=== PATIENT | female | born 1955 | race Caucasian/White ===

== ENCOUNTER 2016-09-27 17:37 | Emergency (ER) | payer MEDICAID ==
--- NOTE | ~2016-09-27 | CR219 ---
[facility] A Service of [facility] & [facility] RADIOLOGY TEXT RESULTS PATIENT: RISA LARA LOCATION: CFTX : 57 UNIT #: [id number] AGE: [address]: Polina Bray SEX: F ORDER DR: [id number] [facility] [address] [place], [place] [address] [id number] E MR#: [id number] Acc #: [id number] NAME: RISA LARA. : 1955 SEX: F STUDY DATE/TIME: 09/27/2016 19:46 UNIT: [facility] ROOM: STUDY DESCRIPTION: CR Sacrum and Coccyx Min 2 Vie Attending Physician: Polina Bray Pa-C Ordering Physician: Ed Mehdi Mancilla M.D. Primary Care Physician: Taylor Sinclair M.D. MEDICAL IMAGING REPORT This report is preliminary unless electronic signature is present EXAM Sacrococcygeal series dated 09/27/16. COMPARISON CT abdomen and pelvis dated 07/15/06. No dedicated prior sacrococcygeal series are available. HISTORY Sacrococcygeal pain post fall on 09/27/16. FINDINGS Six images of three views of the sacrococcygeal spine were obtained. The inlet and outlet pelvic views in the frontal aspect and the lateral sacrococcygeal views were obtained. No obvious acute displaced fracture is identified in the sacrococcygeal spine. There appear to be pars defects at L5 but mild retrolisthesis of S1 with respect to L5. The soft tissues do not demonstrate any significant abnormality. Dictated by... Edgar Lao M.D. THIS IS AN ELECTRONICALLY VERIFIED REPORT Edgar Lao M.D. at 09/28/2016 9:02 PM CPR/bd TD: 09/28/2016 10:42 JOB #: [id number] MEDICAL IMAGING REPORT Page 1 of 1 COPY
--- NOTE | ~2016-09-27 | CR151 ---
[facility] A Service of [facility] & [facility] RADIOLOGY TEXT RESULTS PATIENT: RISA LARA LOCATION: CFTX : 57 UNIT #: [id number] AGE: [address]: Polina Bray SEX: F ORDER DR: [id number] [facility] [address] [place], [place] [address] [id number] E MR#: [id number] Acc #: [id number] NAME: RISA LARA. : 1955 SEX: F STUDY DATE/TIME: 09/27/2016 19:45 UNIT: [facility] ROOM: STUDY DESCRIPTION: CR Hip Min 2 Views Rt Attending Physician: Polina Bray Pa-C Ordering Physician: Ed Doctor [id number] [facility] Primary Care Physician: Taylor Sinclair M.D. MEDICAL IMAGING REPORT This report is preliminary unless electronic signature is present EXAM Right hip series dated 09/27/2016 COMPARISON Right hip series dated 03/01/2016. HISTORY Status post fall on 09/27/2016. Right hip pain. FINDINGS Two views of the right hip were obtained. Minimal arthritic changes are in the right hip joint. Enthesophytes are noted in the pelvis, benign. No acute displaced fracture, dislocation or destructive bony mass is seen. Soft tissues do not demonstrate any significant abnormality. There is mild stool burden in the rectum. Dictated by... Edgar Lao M.D. THIS IS AN ELECTRONICALLY VERIFIED REPORT Edgar Lao M.D. at 09/28/2016 9:02 PM CPR/steff TD: 09/28/2016 10:36 JOB #: [id number] MEDICAL IMAGING REPORT Page 1 of 1 COPY
[~2016-09-27 17:37] MED LIST: ADVAIR 100-501 EACH IH; ALBUTEROL17 GM INH; AMITIZA PO; AMITIZA24 MCG PO; AMITRYPTYLINE PO; ASTELIN137 MCG INH; BENADRYL PO; BUTALBITAL/APAP/CAFF PO; CEFTIN PO; CORRECTOL5 MG PO; DICYCLOMINE HCL20 MG PO; IBUPROFEN PO; IBUPROFEN800 MG PO; KLONOPIN PO; LAMOTRIGINE200 MG PO; LORTAB 5/500 TA1 TA1 PO; MAG-OXIDE400 MG PO; MIRALAX255 GM PO; NASONEX17 GM; NEXIUM PO; PREDNISONE PO; PROZAC PO; REMERON PO; ROBAFEN AC SYR120 M1 PO; SYNTHROID PO; TOFRANIL PO; TOPAMAX PO; TRAZODONE PO; VICODIN 5/500 T1 TAB PO; VICODIN PO
== END 2016-09-27 21:35 | disposition home or self-care (01) ==
LOC: CFTX 17:37 → CED 17:37 → CFTX 20:09
DX: S76.011A Strain of muscle, fascia and tendon of right hip, initial encounter (principal); F43.10 Post-traumatic stress disorder, unspecified; R56.9 Unspecified convulsions; F31.9 Bipolar disorder, unspecified; Z88.0 Allergy status to penicillin; Z88.1 Allergy status to other antibiotic agents; Z88.2 Allergy status to sulfonamides; W18.40XA Slipping, tripping and stumbling without falling, unspecified, initial encounter; Y93.02 Activity, running; Y92.009 Unspecified place in unspecified non-institutional (private) residence as the place of occurrence of the external cause; Y99.8 Other external cause status
CPT/HCPCS: 72220; 73502; 99283